=== PATIENT | male | born 1975 | race Caucasian/White ===

== ENCOUNTER 2020-03-02 00:19 | Outpatient (CLI) | payer OTHER, SELFPAY ==
[2020-03-02 20:45] LABS: SARS-CoV-2 RNA PCR Negative
== END 2020-03-02 00:20 | disposition home or self-care (01) ==
LOC: ANHCOVIDDT 00:19
PROVIDERS: PCP Family Medicine; Visit Provider Internal Medicine Gastroenterology
DX: Z01.812 Encounter for preprocedural laboratory examination (principal); Z20.828 Contact with and (suspected) exposure to other viral communicable diseases
CPT/HCPCS: 87635; C9803; U0003

== ENCOUNTER 2020-03-05 00:47 | Day surgery (SDC) | payer OTHER, SELFPAY ==
[2020-02-24 14:02] VITALS: BMI 31.1
[2020-03-05] MEDS: LACTATED RINGERS 1,000 ML 150 ML IV CONT (09:11)
[2020-03-05 09:20] VITALS: BP 162/96; PULSE 90; RESP 18; TEMP 36.5; O2SAT 98; BMI 10.7
--- NOTE | 2020-03-05 09:22 | WPDANESEPPF ---
Anes - Initial Pre Proc Eval Procedure: Operation Date: 03/05/20 10:00 Proposed Procedures p Esophagogastroduodenoscopy & Screening Colonoscopy - José Miguel Francois MD Date/Time: 03/05/20 09:22 Surgeon: José Miguel Francois MD Pre Op Diagnosis: Neoplasm Screening/ Hx Colon Polyps/ Dysphagia Patient Data Age: 44 Gender: M Height: 5 ft 7 in Weight: 31.1 kg Last Vital Signs Temp 97.7 F 03/05/20 09:20 Pulse 90 03/05/20 09:20 Resp 18 03/05/20 09:20 BP 162/96 H 03/05/20 09:20 Pulse Ox 98 03/05/20 09:20 Allergies Allergy/AdvReac Type Severity Reaction Status Date / Time fexofenadine Allergy Unknown Unknown Verified 03/05/20 08:57 pseudoephedrine Allergy Unknown MAKES HIM Unverified 03/05/20 08:57 HYPER FEXOFENADINE HCL Allergy Unknown MAKES ME Uncoded 03/05/20 08:57 CRAZY NKFA Allergy Unknown Unknown Uncoded 03/05/20 08:57 PSEUDOEPHEDRINE HCL Allergy Unknown MAKES ME Uncoded 03/05/20 08:57 CRAZY Home Medications Medication Instructions Recorded Confirmed Type irbesartan 300 mg tablet 300 mg PO DAILY #90 tablet 12/13/19 03/05/20 Rx escitalopram oxalate 20 mg tablet 20 mg PO DAILY #90 tablet 02/07/20 03/05/20 Rx Patient hx anesthesia problems: none Family hx anesthesia problems: none PMFSH Past Medical History Medical History (Updated 03/05/20 @ 09:22 by Jacobo Ordonez MD) Anxiety disorder, unspecified Essential (primary) hypertension Gastro-esophageal reflux disease without esophagitis Social History Social History Years smoked: 16 Smoking status: Former smoker Tobacco type: cigarettes Smoking end date: 04/03/03 Alcohol intake: current Drinks per week: 5 Substance use: never Substance use type: does not use Living arrangements: with family Gender identity (if verbalized by the patient): Male Spiritual care concerns: No Anes - Eval Final PreProcedure Day of Procedure 03/05/20 09:22 Patient weight: obese Heart: regular rate and rhythm Lungs: clear to auscultation Airway: Mallampati scale class II Neurological: alert and oriented Last oral intake: >/= 8 hours ASA classification: III Emergent: no Anesthetic plan: proceed Anesthesia type and monitoring: general GIVS and standard monitoring Informed Consent: The patient's anesthetic plan and its attendant risks and benefits were discussed with the patient/family/POA. Questions were solicited and answers provided to the satisfaction of the patient/family/POA.
[2020-03-05 09:23] VITALS: BMI 34.0
--- NOTE | 2020-03-05 09:38 | WPDGICN ---
Assessment and Plan Assessment and plan (1) Dysphagia: Code(s): R13.10 - Dysphagia, unspecified Status: Acute Assessment and Plan: Patient has some difficulty swallowing. Food catches and mid substernal portion of the chest. Appears to correlate with his history of acid reflux. Plan is for EGD to assess swallowing difficulties as well as GE reflux disease. (2) History of colon polyps: Code(s): Z86.010 - Personal history of colonic polyps Status: Acute Assessment and Plan: Patient has a history of colon polyps as well as a family history of colon polyps in father and sister. Plan is for colonoscopy today to assess more thoroughly. He likely should have follow-up exams at 5 year intervals in the future. (3) Family history of colonic polyps: Code(s): Z83.71 - Family history of colonic polyps Status: Acute GI Consult Note Consult date/time: 03/05/20 09:38 HPI: Judah Choudhury is a 44 year old male seen in evaluation at the request of Dr. Tom Palacios. Patient has a long history of acid reflux disease. He states that food will occasionally catch in mid substernal portion of the chest. He attributes this to excess sinus drainage. He denies any weight loss or bleeding. Because of ongoing GE reflux disease and dysphagia an EGD will be performed. Patient previously took AcipHex but no longer requires this on a daily basis. Patient has a past medical history of colon polyps. Family history is significant both father and sister have had colon polyps patient presents today for surveillance colonoscopy. Current weight appetite bowel movements are normal. Review of Systems Review of Systems: All systems reviewed & are unremarkable except as noted in HPI and below [facility] Past Medical History Medical History (Updated 03/05/20 @ 09:41 by José Miguel Francois MD) Anxiety disorder, unspecified Essential (primary) hypertension Gastro-esophageal reflux disease without esophagitis Social History Social History Years smoked: 16 Smoking status: Former smoker Tobacco type: cigarettes Smoking end date: 04/03/03 Alcohol intake: current Drinks per week: 5 Substance use: never Substance use type: does not use Living arrangements: with family Gender identity (if verbalized by the patient): Male Spiritual care concerns: No Meds Home Medications and Allergies Home Medications Medication Instructions Recorded Confirmed Type irbesartan 300 mg tablet 300 mg PO DAILY #90 tablet 12/13/19 03/05/20 Rx escitalopram oxalate 20 mg tablet 20 mg PO DAILY #90 tablet 02/07/20 03/05/20 Rx Allergies Allergy/AdvReac Type Severity Reaction Status Date / Time fexofenadine Allergy Unknown Unknown Verified 03/05/20 08:57 pseudoephedrine Allergy Unknown MAKES HIM Unverified 03/05/20 08:57 HYPER FEXOFENADINE HCL Allergy Unknown MAKES ME Uncoded 03/05/20 08:57 CRAZY NKFA Allergy Unknown Unknown Uncoded 03/05/20 08:57 PSEUDOEPHEDRINE HCL Allergy Unknown MAKES ME Uncoded 03/05/20 08:57 CRAZY Vital Signs Vital Signs - 24 hr 03/05/20 09:20 Temperature 97.7 F Pulse Rate 90 Respiratory Rate 18 Blood Pressure 162/96 H Pulse Oximetry 98 Exam Narrative: Exam Narrative: Physical exam reveals patient be alert. Vital signs stable. HEENT exam unremarkable. Lungs are clear to auscultation and percussion. Heart is without murmur or extra sounds. Abdominal exam bowel sounds are present soft nontender with no organomegaly. Digital external rectal exam normal.
[2020-03-05] MEDS: SIMETHICONE ORAL SUSPENSION 20 MG/0.3 ML 30 ML BOTTLE 0.6 ML IRRIGATION (09:57)
[2020-03-05 10:18] VITALS: BP 111/65; PULSE 85; RESP 22; O2SAT 93
[2020-03-05 10:28] VITALS: BP 116/63; PULSE 80; RESP 19; O2SAT 93
[2020-03-05 10:38] VITALS: BP 134/88; PULSE 63; RESP 17; O2SAT 96
== END 2020-03-05 10:47 | disposition home or self-care (01) ==
PROVIDERS: PCP Family Medicine; Visit Provider Internal Medicine Gastroenterology
PROC: 0DJ08ZZ Inspection of Upper Intestinal Tract, Via Natural or Artificial Opening Endoscopic (ICD-10-PCS; CPT 43235; principal; 2020-03-05 10:00)
DX: R13.10 Dysphagia, unspecified (principal); K21.9 Gastro-esophageal reflux disease without esophagitis; Z12.11 Encounter for screening for malignant neoplasm of colon; K63.5 Polyp of colon; K64.8 Other hemorrhoids; Z83.71 Family history of colonic polyps; I10 Essential (primary) hypertension; F41.9 Anxiety disorder, unspecified; Z87.891 Personal history of nicotine dependence; E66.9 Obesity, unspecified; Z68.34 Body mass index [BMI] 34.0-34.9, adult
CPT/HCPCS: 45385; 43239; 43450; 87081; 87635; 88305; C9803; J2704; J7120; U0003

== ENCOUNTER 2024-04-05 09:40 | Outpatient (CLI) | payer BC, SELFPAY ==
[2024-04-05 10:24] LABS: Basophils Absolute Auto 0.1 K/mm3 (0.0-0.1); Basophils Percent Auto 0.4 % (0.2-1.2); Eosinophils Percent Auto 0.2 % (0-4.4); Hematocrit 45.9 % (42.0-52.0); Immature Granulocyte Absolute 0.07 K/mm3 (0.00-0.031); Immature Granulocyte Percent A 0.6 % (0-0.5); Lymphocytes Absolute Auto 1.11 K/mm3 (0.9-3.2); Lymphocytes Percent Auto 9.2 % (18.3-44.2); Mean Corpuscular HGB Conc 34.9 g/dl (32-36); Mean Corpuscular Hemoglobin 29.3 pg (26-34); Mean Corpuscular Volume 83.9 fl (80-100); Mean Platelet Volume 9.1 fl (7.4-10.4); Monocytes Absolute Auto 1.5 K/mm3 (0.1-0.6); Monocytes Percent Auto 12.3 % (2.6-8.5); Neutrophils Absolute Auto 9.3 K/mm3 (1.3-6.7); Neutrophils Percent Auto 77.3 % (45.5-73.1); Platelet Count Result 320 k/mm3 (150-375); Red Blood Count 5.47 M/mm3 (4.6-6.20); Red Cell Distribution Width 12.6 % (11.5-14.5)
[2024-04-05 10:32] LABS: Add Urine Microscopic? YES; Appearance Urine Clear (Clear); Bacteria Urine None Seen /hpf; Bilirubin Urine Negative (Negative); Blood Urine 2+ (Negative); Color Urine Yellow (Yellow); Glucose Urine UA Negative (Negative); Ketones Urine Negative (Negative); Leukocyte Esterase Ur Negative LEU/UL (Negative); Nitrate Urine Negative (Negative); Protein Urine Trace mg/dL (Negative); RBC Urine 21-50 /hpf (0-2); Specific Grav Ur 1.019 (1.001-1.035); Squamous Epithelial Cell Urine None Seen /hpf (Few); WBC Urine 0-5 /hpf (0-3)
[2024-04-05 10:35] LABS: Alanine Aminotransferase 41 U/L (6-50); Albumin Level 4.8 g/dL (3.5-5.1); Alkaline Phosphatase 79 U/L (38-126); Anion Gap 5 mmol/L (4-12); Aspartate Amino Transferase 32 U/L (17-59); Bilirubin,Total 1.1 mg/dL (0.2-1.3); Blood Urea Nitrogen 21 mg/dL (9-20); Calcium 9.3 mg/dL (8.4-10.2); Carbon Dioxide 31 mmol/L (22-30); Chloride 98 mmol/L (98-107); Estimated Glomerular Filt Rate > 60; Glucose 125 mg/dL (65-110); Potassium 3.8 mmol/L (3.4-5.0); Sodium 134 mmol/L (137-145)
[2024-04-05 11:03] LABS: Total Triiodothyronine (T3) 1.12 NG/ML (0.97-1.69)
[2024-04-05 11:10] LABS: Free T4 Free Thyroxine 1.57 ng/dL (0.78-2.19)
[2024-04-10 17:11] LABS: Creatinine, Urine 187 mg/dL (20-320)
== END 2024-04-05 09:41 | disposition home or self-care (01) ==
LOC: ANHLAB 09:41
PROVIDERS: PCP Family Medicine; Visit Provider Physician Assistant
DX: F41.9 Anxiety disorder, unspecified (principal); I10 Essential (primary) hypertension; R00.0 Tachycardia, unspecified; R00.2 Palpitations; H53.8 Other visual disturbances; F41.0 Panic disorder [episodic paroxysmal anxiety]; E86.0 Dehydration; R41.0 Disorientation, unspecified
CPT/HCPCS: 36415; 80053; 81001; 82384; 82570; 83835; 84439; 84443; 84480; 85025